=== PATIENT | male | born 1965 | race Caucasian/White ===

== ENCOUNTER 2017-10-14 07:26 | Emergency (ER) | payer SELFPAY ==
[~2017-10-14] VITALS: Ht 177.8 cm; Wt 81.6 kg
--- NOTE | 2017-10-14 07:58 | NUR ---
PT. VERBALIZED UNDERSTANDING OF AFTERCARE INSTRUCTIONS.Patient discharged to home in stable condition. Written and verbal after care instructions given. Patient verbalizes understanding of instruction.
[2017-10-14 08:06] VITALS: BP 125/82
== END 2017-10-14 08:12 | disposition home or self-care (01) ==
LOC: ER 07:30
DX: L03.114 Cellulitis of left upper limb (principal); L03.113 Cellulitis of right upper limb
CPT/HCPCS: A4606; Z7610

== ENCOUNTER 2019-05-13 20:15 | Emergency (ER) | payer MEDICAID ==
[~2019-05-13] VITALS: Ht 175.3 cm; Wt 79.4 kg
--- NOTE | 2019-05-13 20:56 | NUR ---
CALLED PT NAME IN [facility]. NO ONE IN [facility] AT THIS TIME. WILL FOLLOW UP.
[2019-05-13 21:02] VITALS: BP 151/98
[2019-05-13] MEDS ORDERED: LIDOCAINE 1%-EPI 1:100,000 20 ML VIAL ONE (21:16)
[2019-05-13] MEDS: LIDOCAINE 1%-EPI 1:100,000 20 ML VIAL TP ONE (21:18)
[2019-05-13] MEDS ORDERED: SULFAMETH/TRIMETH 800/160 MG 1 UDTAB TABLET ONE (21:39)
[2019-05-13] MEDS ORDERED: ACETAMINOPHEN ES 500 MG TABLET ONE (21:39)
[2019-05-13] MEDS ORDERED: CEPHALEXIN MONOHYDRATE 500 MG CAPSULE PO ONE (21:40)
[2019-05-13] MEDS: CEPHALEXIN MONOHYDRATE 500 MG CAPSULE PO ONE (21:45)
[2019-05-13] MEDS: SULFAMETH/TRIMETH 800/160 MG 1 UDTAB TABLET PO ONE (21:45)
[2019-05-13] MEDS: ACETAMINOPHEN 325 MG TABLET PO ONE (21:45)
== END 2019-05-13 21:48 | disposition home or self-care (01) ==
LOC: ER 20:20
DX: L02.413 Cutaneous abscess of right upper limb (principal); Z98.890 Other specified postprocedural states
CPT/HCPCS: 10060; 99284; A6403; A6407; J3490